=== PATIENT | female | born 1995 | race Caucasian/White ===

== ENCOUNTER 2019-08-03 21:42 | Emergency (ER) | payer SELFPAY ==
[~2019-08-03] VITALS: Ht 170.2 cm; Wt 72.7 kg
[2019-08-03 21:47] VITALS: BP 123/80; TEMP 98.1
[2019-08-03 23:00] VITALS: PULSE 64
== END 2019-08-03 23:00 | disposition home or self-care (01) ==
LOC: COL.ER 21:42
DX: S01.551A Open bite of lip, initial encounter (principal); W54.0XXA Bitten by dog, initial encounter

== ENCOUNTER 2019-08-08 10:48 | Emergency (ER) | payer SELFPAY ==
[2019-08-08 11:01] VITALS: BP 111/70; PULSE 53; TEMP 98.5
== END 2019-08-08 11:10 | disposition home or self-care (01) ==
LOC: COL.ER 10:48
DX: Z48.02 Encounter for removal of sutures (principal)